=== PATIENT | male | born 1955 | race African-American/Black ===

== ENCOUNTER 2023-01-02 02:36 | Emergency (ER) | payer MEDICARE, MEDICAID ==
[2023-01-02 04:04] LABS: #Eosinphils 0.1 10x3/uL (0.0-0.5); #Monocytes 0.6 10x3/uL (0.0-1.1); #Neutrophils 5.2 10x3/uL (1.5-8.4); %Basophils 0.4 % (0.0-2.0); %Eosinophils 0.9 % (0.0-6.0); %Lymphocytes 21.8 % (18.0-47.0); %Monocytes 7.8 % (0.0-10.0); %Neutrophils 68.8 % (40.0-75.0); Hematocrit 37.8 % (38.8-50.0); Hemoglobin 12.6 g/dL (13.5-17.5); Mean Corpuscular HGB CONC 33.3 g/dL (32.0-36.0); Mean Corpuscular Hemoglobin 21.9 pg (27.0-33.0); Mean Corpuscular Volume 65.6 fl (81.2-95.1); Platelet Count 270 10x3/uL (150-450); RBC Distribution Width 15.4 % (11.5-14.5); Red Blood Cell (RBC) Count 5.76 10x6/uL (4.32-5.72); White Blood Cell (WBC) Count 7.5 10x3/uL (3.5-10.5)
[2023-01-02 04:13] LABS: ALT (SGPT) 12 U/L (8-55); AST (SGOT) 16 U/L (5-34); Albumin 4.2 g/dL (3.4-4.8); Alkaline Phosphatase 74 U/L (40-110); Anion Gap 18 mmol/L (10-20); BUN (Urea Nitrogen) 13 mg/dL (8.4-25.7); Bilirubin, Total 0.2 mg/dL (0.2-1.2); Calc. Creatinine Clearance 0 mL/min (70-130); Calcium 8.9 mg/dL (7.8-10.44); Carbon Dioxide 22 mmol/L (23-31); Chloride 104 mmol/L (98-107); Estimated GFR 97; Glucose 96 mg/dL (80-115); Potassium 3.9 mmol/L (3.5-5.1); Protein, Total 7.2 g/dL (5.8-8.1); Sodium 140 mmol/L (136-145)
[2023-01-02 04:29] LABS: Microcytosis SLIGHT = 6-15 cells (100X) (0-5/hpf); Target Cells SLIGHT = 2-5 cells (100X) (0-1/hpf)
== END 2023-01-02 05:05 | disposition home or self-care (01) ==
LOC: CSHERS 02:36
DX: I95.1 Orthostatic hypotension (principal)
CPT/HCPCS: 80053; 84484; 85025; 93005; 93010; 99284